=== PATIENT | male | born 1975 | race Caucasian/White ===

== ENCOUNTER 2025-04-02 09:54 | Day surgery (SDC) | payer OTHER ==
[~2025-04-02] VITALS: Ht 182.9 cm; Wt 100.0 kg
[~2025-04-02 09:54] MED LIST: FISH OIL 1,0001 EAC2 NG; IBLOOD GLUCOSE TEST STRIP 1 EA TEST VI PRN; LACTATED RINGER'S 1,000 ML IV SCH; LIDOCAINE HCL 1% 5 ML SDV INJ ONE; MIDAZOLAM HCL 5 MG/5 ML VIAL IV PRN; MULTIVITAMINS1 EAC8 PO; NORCO 5-325 TA1 EACH PO; PROBIOTIC1 EAC5 PO; ULTRAM50 MG PO; ZOLOFT50 MG PO; fentaNYL citrate 100 MCG/2 ML VIAL IV PRN
[2025-04-02 10:10] VITALS: BP 137/83
[2025-04-02] MEDS ORDERED: fentaNYL citrate 100 MCG/2 ML VIAL ONE (10:31)
[2025-04-02] MEDS ORDERED: MIDAZOLAM HCL 5 MG/5 ML VIAL ONE (10:31)
--- NOTE | 2025-04-02 12:02 | NUR ---
04/02/25 1202 Oliva Frias 1156 PT TO PACU AWAKE DENIES PAIN AND NAUSEA. PT RESPONDS TO QUESTIONS APPROPREATLEY.
[2025-04-02 12:17] VITALS: BP 109/78
--- NOTE | 2025-04-06 10:06 | OR ---
[facility] [address] [place], [place] [address] Signed DATE OF OPERATION: 04/02/2025 SURGEON: Olya Ingram MD PREOPERATIVE DIAGNOSIS: Colon screening. POSTOPERATIVE DIAGNOSIS: Normal colon to cecum. PROCEDURE: Total colonoscopy to cecum. ANESTHESIA: Intravenous sedation fentanyl 100 mcg, Versed 5 mg. INDICATION: This 50-year-old man is a patient of JOCELIN Weiss here for consideration of colonoscopy. Last underwent colonoscopy 25 years ago in 1999 in [place], which was said to be negative. The patient has no current symptoms of bleeding, diarrhea or constipation and no family history of colon cancer. He is admitted at this time to undergo screening colonoscopy. He understands the risk of bleeding, infection, and perforation. FINDINGS: Prep was excellent. Complete colonoscopy was undertaken of the cecum with full intubation of the cecum. There was no evidence of polyps, diverticular formation, colitis, or cancer. DESCRIPTION OF PROCEDURE: The patient was brought to the endoscopy suite and placed in lateral decubitus position, given intravenous sedation to the point of slurred speech and nystagmus. Digital rectal examination was normal. An Olympus video colonoscope was passed in the rectum and manipulated throughout the colon ultimately intubating the cecum itself. The ileocecal valve and appendiceal orifice were normal. Scope was withdrawn. Examination showed no sign of abnormality specifically no polyps, diverticular formation, colitis, or cancer. Retroflexed view of the rectum was normal. Scope was removed. The patient was taken to the recovery room in good condition. Electronically Signed By: OLYA INGRAM MD 04/06/25 1006 PATIENT NAME: KRISTIE QUEEN OPERATIVE REPORT DATE OF : 73 REPORT #: [id number] PHYSICIAN: OLYA INGRAM MD PCP: ARISTEO GRIMALDO PAC REPORT IS CONFIDENTIAL AND NOT TO BE RELEASED WITHOUT AUTHORIZATION [facility] [address] [place], [place] [address], [place] [address] Signed CONCLUDING DIAGNOSIS: Normal colon to cecum. PLAN: Recommend repeat colonoscopy in 10 years based on current recommendations, sooner if symptoms should develop, which include bleeding, diarrhea, or constipation. He will return to the ongoing care of Aristeo Grimaldo. MD CHER Belle/RYANNL /[id number] cc: Aristeo Grimaldo PA-C Copies: ~ Electronically Signed By: OLYA INGRAM MD 04/06/25 1006 PATIENT NAME: KRISTIE QUEEN OPERATIVE REPORT DATE OF : 73 REPORT #: [id number] PHYSICIAN: OLYA INGRAM MD PCP: ARISTEO GRIMALDO PAC REPORT IS CONFIDENTIAL AND NOT TO BE RELEASED WITHOUT AUTHORIZATION
== END 2025-04-02 12:30 | disposition home or self-care (01) ==
LOC: DS 09:54
PROVIDERS: ATTEND Surgery
PROC: 0DJD8ZZ Inspection of Lower Intestinal Tract, Via Natural or Artificial Opening Endoscopic (ICD-10-PCS; principal; 2025-04-02 11:30)
DX: Z12.11 Encounter for screening for malignant neoplasm of colon (principal); Z90.49 Acquired absence of other specified parts of digestive tract
CPT/HCPCS: 99153; G0500; J2250; J3010